=== PATIENT | female | born 1970 | race Caucasian/White ===

== ENCOUNTER → 2022-02-27 | Day surgery (SDC) | payer BC ==
[~2022-02-27] MED LIST: CRESTOR20 MG PO; CYCLOBENZAPRINE10 MG PO; LEXAPRO10 MG PO; LOSARTAN POTASS50 MG PO; SPIRONOLACTONE25 MG PO; TOPIRAMATE50 MG PO; TOPROL XL 25 MG25 MG PO
== END | disposition home or self-care (01) ==
LOC: OR 06:38
DX: Z12.11 Encounter for screening for malignant neoplasm of colon (principal); K57.30 Diverticulosis of large intestine without perforation or abscess without bleeding; K56.609 Unspecified intestinal obstruction, unspecified as to partial versus complete obstruction; I10 Essential (primary) hypertension; E78.5 Hyperlipidemia, unspecified; F41.9 Anxiety disorder, unspecified; F32.A Depression, unspecified; F17.210 Nicotine dependence, cigarettes, uncomplicated; E66.9 Obesity, unspecified; Z68.32 Body mass index [BMI] 32.0-32.9, adult; Z88.6 Allergy status to analgesic agent; Z88.1 Allergy status to other antibiotic agents; Z79.899 Other long term (current) drug therapy; Z90.49 Acquired absence of other specified parts of digestive tract; Z72.89 Other problems related to lifestyle
CPT/HCPCS: G0121; J2001; J2704; J7040

== ENCOUNTER → 2022-03-13 | Outpatient (CLI) | payer BC | LOC: EXRD 08:00 | DX: K76.0 Fatty (change of) liver, not elsewhere classified (principal) | CPT/HCPCS: 76705 ==